=== PATIENT | male | born 1995 | race American Indian/Alaskan Native ===

== ENCOUNTER 2016-08-07 15:35 | Emergency (ER) | payer MEDICAID ==
[2016-08-07 16:25] LABS: Basophils % (Auto) 0.5 % (0.0-1.8); Eosinophils % (Auto) 0.2 % (0.0-4.3); Hematocrit 42.5 % (35.5-45.6); Hemoglobin 14.2 gm/dl (11.8-15.2); Mean Corpuscular HGB Conc 33 % (32-34); Mean Corpuscular Hemoglobin 29 pg (28-32); Mean Corpuscular Volume 88 fl (84-94); Platelet Count 227 K/mm3 (140-440); Red Blood Count 4.86 M/mm3 (3.65-5.03); Red Cell Distribution Width 14.1 % (13.2-15.2); White Blood Count 6.2 K/mm3 (4.5-11.0)
[2016-08-07 16:41] LABS: Anion Gap 15 mmol/L; BUN/Creatinine Ratio 10.83; Blood Urea Nitrogen 13 mg/dL (9-20); Calcium 9.4 mg/dL (8.4-10.2); Carbon Dioxide 27 mmol/L (22-30); Chloride 102.4 mmol/L (98-107); Glucose 97 mg/dL (75-100); Potassium 4.7 mmol/L (3.6-5.0); Sodium 140 mmol/L (137-145)
--- NOTE | 2016-08-07 17:54 | Emergency Department Report ---
Chief Complaint: Psych Stated Complaint: SUICIDAL Time Seen by Provider: 08/07/16 17:50 - HPI History of Present Illness: Patient brought to hospital by police department. He reported the patient was starting to cut himself with a knife at [facility]. Reports threatening to kill himself. Denies hallucination. Denies homicidal ideation. They reported that he had small cut to his left index finger. Patient denies any suicidal or homicidal ideation. He reports that he is bipolar, ADHD and other psychotic disorder. - ROS Review of Systems: All systems are negative unless stated in HPI above - Exam Vital Signs: Vital Signs 08/07/16 15:54 Temperature 98.4 F Pulse Rate 71 Respiratory 17 Rate Blood Pressure 125/81 O2 Sat by Pulse 98 Oximetry Physical Exam: General: This is a 21-year-old male well-nourished well-developed in no acute distress. PSYCH: Normal mood and behavior. negative suicide ideation negative homicide ideation and negative hallucination. MSE screening note: Focused history and physical exam performed. Due to findings the following was ordered: ED Medical Decision Making - Lab Data Result diagrams: 08/07/16 16:05 08/07/16 16:05 Lab Results 08/07/16 08/07/16 08/07/16 Range/Units 16:05 16:05 16:05 WBC 6.2 (4.5-11.0) K/mm3 RBC 4.86 (3.65-5.03) M/mm3 Hgb 14.2 (11.8-15.2) gm/dl Hct 42.5 (35.5-45.6) % MCV 88 (84-94) fl MCH 29 (28-32) pg MCHC 33 (32-34) % RDW 14.1 (13.2-15.2) % Plt Count 227 (140-440) K/mm3 Lymph % (Auto) 31.9 (13.4-35.0) % [place] % (Auto) 8.0 H (0.0-7.3) % Eos % (Auto) 0.2 (0.0-4.3) % Baso % (Auto) 0.5 (0.0-1.8) % Lymph # 2.0 (1.2-5.4) K/mm3 [place] # 0.5 (0.0-0.8) K/mm3 Eos # 0.0 (0.0-0.4) K/mm3 Baso # 0.0 (0.0-0.1) K/mm3 Seg Neutrophils % 59.4 (40.0-70.0) % Seg Neutrophils # 3.7 (1.8-7.7) K/mm3 Sodium 140 (137-145) mmol/L Potassium 4.7 (3.6-5.0) mmol/L Chloride 102.4 (98-107) mmol/L Carbon Dioxide 27 (22-30) mmol/L Anion Gap 15 mmol/L BUN 13 (9-20) mg/dL Creatinine 1.2 (0.8-1.5) mg/dL Estimated GFR > 60 ml/min BUN/Creatinine Ratio 10.83 % Glucose 97 (75-100) mg/dL Calcium 9.4 (8.4-10.2) mg/dL Plasma/Serum Alcohol < 0.01 (0-0.07) gm% - Medical Decision Making Medical decision making: Patient seen by provider in triage area. Appropriate protocol activated and patient to main ED to be seen by physician. ED Disposition for MSE Condition: Stable
[2016-08-07] MEDS ORDERED: GEODON IM ONE (21:22)
[2016-08-07] MEDS ORDERED: BENADRYL IM ONE (21:22)
[2016-08-07] MEDS ORDERED: BOOSTRIX IM ONE (21:22)
--- NOTE | 2016-08-07 21:34 | Emergency Department Report ---
ED Psych HPI - General Chief Complaint: Psych Stated Complaint: SUICIDAL Time Seen by Provider: 08/07/16 17:50 Source: patient Mode of arrival: Ambulatory Limitations: No Limitations - History of Present Illness Initial Comments: 21-year-old male with a past medical history impulse control problems, aggressive behavior, bipolar, and ADHD presents to the hospital complaints of suicidal threats. Apparently this episode occurred at [facility]. Patient states he has a girlfriend at [facility] and she got wrote up by her boss because she was talking to the patient. Patient felt bad about it and depressed. He stated he walked to the back of the [facility] and place a knife in his pocket and told the staff to call the police. When they did not call the police he pulled the knife out and made a superficial scratch to his left wrist and superficial laceration to his left thumb and index finger. Police were called and several came to scene and transferred the pt to the Ed for evaluation. Patient states tetanus status is unknown and likely not up-to-date. Patient denies any previous history of suicidal ideation or attempt. He has been compliant with his psychiatric medication but cannot recall the names or doses. Patient is insisting that he does not want to stay and he needs to be discharged and given an other chance. - Related Data Home Medications Medication Instructions Recorded Confirmed Last Taken Unobtainable [Unobtainable] 12/24/13 12/24/13 Unknown Allergies Allergy/AdvReac Type Severity Reaction Status Date / Time Penicillins Allergy Anaphylaxis Verified 08/07/16 15:50 tomato [Tomato] Allergy Swelling Verified 08/07/16 15:50 ED Review of Systems ROS: Stated complaint: SUICIDAL Other details as noted in HPI Comment: All other systems reviewed and negative Other: Constitutional: No fevers chills or weight loss Eyes: No eye pain visual changes or discharge ENT: No ear pain or throat pain Neck: Denies pain Respiratory: Denies cough wheezing shortness of breath Cardiovascular: Denies chest pain, palpitations, syncope GI: Denies abdominal pain, nausea, vomiting, diarrhea : Denies dysuria Musculoskeletal: Denies back pain, joint swelling Skin: as per hpi Neurologic: Denies headache, numbness, weakness Psychiatric: as per hpi ED Past Medical Hx - Past Medical History Hx Psychiatric Treatment: Yes (IMPULSIVE / AGGRESSIVE / BIPOLAR / ADHD) Additional medical history: Bipolar. ADHD - Surgical History Past Surgical History?: No - Social History Smoking Status: Never Smoker Substance Use Type: None - Medications Home Medications: Home Medications Medication Instructions Recorded Confirmed Last Taken Type Unobtainable [Unobtainable] 12/24/13 12/24/13 Unknown History ED Physical Exam - General Limitations: No Limitations - Other Other exam information: General: No limitations, patient is alert in no acute distress Head exam: Atraumatic, normocephalic Eyes exam: Normal appearance ENT: Moist mucous membrane, normal oropharynx Neck exam: Normal inspection, full range of motion Respiratory exam: Clear to auscultation bilateral, no wheezes, rales, crackles Cardiovascular: Normal rate and rhythm, normal heart sounds Abdomen: Soft, nondistended, and nontender, with normal bowel sounds, no rebound, or guarding Extremity: Full range of motion normal inspection no deformity Back: Normal Inspection, full range of motion, no tenderness Neurologic: Alert, oriented x3, cranial nerves intact, no motor or sensory deficit Psychiatric: normal affect Skin: superficial scratch to left volar wrist, .5 cm lac to pulp of thumb and 1.2 cm lac to pulp of left index finger ED Course Vital Signs 08/07/16 15:54 Temperature 98.4 F Pulse Rate 71 Respiratory 17 Rate Blood Pressure 125/81 O2 Sat by Pulse 98 Oximetry - Reevaluation(s) Reevaluation #1: 08/07/16 21:38 pt cooperative initially however, became agitated when informed he will need to stay for psych eval. He insisted he needed to go home tonight. Meds ordered to calm pt down ED Medical Decision Making - Lab Data Result diagrams: 08/07/16 16:05 08/07/16 16:05 Lab Results 08/07/16 08/07/16 08/07/16 Range/Units 16:05 16:05 16:05 WBC 6.2 (4.5-11.0) K/mm3 RBC 4.86 (3.65-5.03) M/mm3 Hgb 14.2 (11.8-15.2) gm/dl Hct 42.5 (35.5-45.6) % MCV 88 (84-94) fl MCH 29 (28-32) pg MCHC 33 (32-34) % RDW 14.1 (13.2-15.2) % Plt Count 227 (140-440) K/mm3 Lymph % (Auto) 31.9 (13.4-35.0) % [place] % (Auto) 8.0 H (0.0-7.3) % Eos % (Auto) 0.2 (0.0-4.3) % Baso % (Auto) 0.5 (0.0-1.8) % Lymph # 2.0 (1.2-5.4) K/mm3 [place] # 0.5 (0.0-0.8) K/mm3 Eos # 0.0 (0.0-0.4) K/mm3 Baso # 0.0 (0.0-0.1) K/mm3 Seg Neutrophils % 59.4 (40.0-70.0) % Seg Neutrophils # 3.7 (1.8-7.7) K/mm3 Sodium 140 (137-145) mmol/L Potassium 4.7 (3.6-5.0) mmol/L Chloride 102.4 (98-107) mmol/L Carbon Dioxide 27 (22-30) mmol/L Anion Gap 15 mmol/L BUN 13 (9-20) mg/dL Creatinine 1.2 (0.8-1.5) mg/dL Estimated GFR > 60 ml/min BUN/Creatinine Ratio 10.83 % Glucose 97 (75-100) mg/dL Calcium 9.4 (8.4-10.2) mg/dL Urine Color (Yellow) Urine Turbidity (Clear) Urine pH (5.0-7.0) Ur Specific [place] (1.003-1.030) Urine Protein (Negative) mg/dL Urine Glucose (UA) (Negative) mg/dL Urine Ketones (Negative) mg/dL Urine Blood (Negative) Urine Nitrite (Negative) Urine Bilirubin (Negative) Urine Urobilinogen (<2.0) mg/dL Ur Leukocyte Esterase (Negative) Urine WBC (Auto) (0.0-6.0) /HPF Urine RBC (Auto) (0.0-6.0) /HPF U Epithel Cells (Auto) (0-13.0) /HPF Urine Mucus /HPF Urine Opiates Screen Urine Methadone Screen Ur Barbiturates Screen Ur Phencyclidine Scrn Ur Amphetamines Screen U Benzodiazepines Scrn Urine Cocaine Screen U Marijuana (THC) Screen Drugs of Abuse Note Plasma/Serum Alcohol < 0.01 (0-0.07) gm% 08/07/16 08/07/16 Range/Units 22:08 22:08 WBC (4.5-11.0) K/mm3 RBC (3.65-5.03) M/mm3 Hgb (11.8-15.2) gm/dl Hct (35.5-45.6) % MCV (84-94) fl MCH (28-32) pg MCHC (32-34) % RDW (13.2-15.2) % Plt Count (140-440) K/mm3 Lymph % (Auto) (13.4-35.0) % [place] % (Auto) (0.0-7.3) % Eos % (Auto) (0.0-4.3) % Baso % (Auto) (0.0-1.8) % Lymph # (1.2-5.4) K/mm3 [place] # (0.0-0.8) K/mm3 Eos # (0.0-0.4) K/mm3 Baso # (0.0-0.1) K/mm3 Seg Neutrophils % (40.0-70.0) % Seg Neutrophils # (1.8-7.7) K/mm3 Sodium (137-145) mmol/L Potassium (3.6-5.0) mmol/L Chloride (98-107) mmol/L Carbon Dioxide (22-30) mmol/L Anion Gap mmol/L BUN (9-20) mg/dL Creatinine (0.8-1.5) mg/dL Estimated GFR ml/min BUN/Creatinine Ratio % Glucose (75-100) mg/dL Calcium (8.4-10.2) mg/dL Urine Color Yellow (Yellow) Urine Turbidity Clear (Clear) Urine pH 6.0 (5.0-7.0) Ur Specific [place] 1.026 (1.003-1.030) Urine Protein 30 mg/dl (Negative) mg/dL Urine Glucose (UA) Neg (Negative) mg/dL Urine Ketones Tr (Negative) mg/dL Urine Blood Neg (Negative) Urine Nitrite Neg (Negative) Urine Bilirubin Neg (Negative) Urine Urobilinogen 2.0 (<2.0) mg/dL Ur Leukocyte Esterase Neg (Negative) Urine WBC (Auto) < 1.0 (0.0-6.0) /HPF Urine RBC (Auto) 2.0 (0.0-6.0) /HPF U Epithel Cells (Auto) < 1.0 (0-13.0) /HPF Urine Mucus 1+ /HPF Urine Opiates Screen Presumptive negative Urine Methadone Screen Presumptive negative Ur Barbiturates Screen Presumptive positive Ur Phencyclidine Scrn Presumptive negative Ur Amphetamines Screen Presumptive negative U Benzodiazepines Scrn Presumptive negative Urine Cocaine Screen Presumptive negative U Marijuana (THC) Screen Presumptive negative Drugs of Abuse Note Disclamer Plasma/Serum Alcohol (0-0.07) gm% - Medical Decision Making 1013, ed transfer form signed. Patient requires inpatient treatment for his psychiatric stabilization - Differential Diagnosis impulsive behavior, depression, SI, Critical Care Time: No Critical care attestation.: If time is entered above; I have spent that time in minutes in the direct care of this critically ill patient, excluding procedure time. ED Disposition Clinical Impression: Suicidal ideation, Medical clearance for psychiatric admission, History of impulsive behavior, Hx of bipolar disorder Disposition: DC/TX PSY HOSP/PSY UNIT Is pt being admited?: No Does the pt Need Aspirin: No Condition: Stable Time of Disposition: 01:17 (awaiting acceptance)
[2016-08-07] MEDS ORDERED: TYLENOL PO PRN (21:56)
[2016-08-07] MEDS ORDERED: MILK OF MAGNESIA PO PRN (21:56)
[2016-08-07] MEDS ORDERED: ALUM-MAG HYDROX-SIMETH 200-200-20MG/5ML PO PRN (21:56)
[2016-08-07 22:20] LABS: Urine Drugs of Abuse Note Disclamer
[2016-08-07 22:29] LABS: Bilirubin,Urine NEG (Negative); Blood,Urine NEG (Negative); Ketones,Urine TR mg/dL (Negative); Leukocyte Esterase,Urine NEG (Negative); Mucus,Urine 1+ /HPF; Nitrite,Urine NEG (Negative); WBC,Urine < 1.0 /HPF (0.0-6.0)
--- NOTE | 2016-08-08 11:43 | Consultation ---
History of Present Illness - Reason for Consult Consult date: 08/08/16 Reason for consult: Mental Health Evaluation Requesting physician: EDGARDO NIETO - Chief Complaint Chief complaint: "I just cut my finger" - History of Present Psychiatric Illness 21-year-old AA male with a past medical history impulse control problems, aggressive behavior, bipolar, and ADHD presents to the hospital complaints of suicidal threats. Today patient is calm, cooperative with a tangential thought process. He stated he cut his finger in [facility] because his girlfriend got wrote up for talking to him. He could not tell me the girlfriend's name. He stated, "She know her name and who I am." Per the patient he wanted to cut his "artery" instead of his finger. He stated that he has SI's often. He stated that he use sharp objects to injure himself when he becomes impulsive. He stated , "I miss my woman." Again he could not tell me any information about this person. The patient resides near [facility] in [place], [place]. Patient was looking around during discussion, possibly responding to external stimuli. He denies SI/ HI's, AVH, poor appetite or sleep disturbance. He denies recreational drug use and alcohol consumption (etoh). He admit to taking psy medications for Bipolar and ADHD. He could not recall the last time he took his meds. Patient has superficial wounds to his left wrist, left thumb and index finger. Medications and Allergies Allergies Allergy/AdvReac Type Severity Reaction Status Date / Time Penicillins Allergy Anaphylaxis Verified 08/07/16 15:50 tomato [Tomato] Allergy Swelling Verified 08/07/16 15:50 Home Medications Medication Instructions Recorded Confirmed Last Taken Type Chlorpromazine HCl [chlorproMAZINE] 200 mg PO BID 08/08/16 08/08/16 Unknown History Divalproex Sodium [Divalproex 1,500 mg PO QHS 08/08/16 08/08/16 Unknown History Sodium ER] Finasteride [Proscar] 5 mg PO DAILY 08/08/16 08/08/16 Unknown History Hydroxyzine HCl [hydrOXYzine] 50 mg PO QHS 08/08/16 08/08/16 Unknown History Olanzapine [OLANZapine] 30 mg PO QHS 08/08/16 08/08/16 Unknown History carBAMazepine [TEGretol] 200 mg PO BID 08/08/16 08/08/16 Unknown History clonazePAM 0.5 mg PO BID 08/08/16 08/08/16 Unknown History Active Meds: Active Medications Acetaminophen (Tylenol) 650 mg PO Q4HR PRN PRN Reason: Pain MILD(1-3)/Fever >100.5/SOLIS Al Hydrox/Mg Hydrox/Simethicone (Alum-Mag Hydrox-Simeth 662-148-11re/5ml) 30 ml PO Q4HR PRN PRN Reason: Indigestion Magnesium Hydroxide (Milk Of Magnesia) 30 ml PO Q12HR PRN PRN Reason: Constipation Past psychiatric history - Past Medical History Past Medical History: No medical history Past Surgical History: No surgical history - past Psychiatric treatment and history Psych: Bipolar, Depression, Psychosis psychiatric treatment history: Multiple inpatient settings. Denies fam psy hx. - Social History Social history: other (Live at a [facility] in [place], [place]) Mental Status Exam - Vital signs Last Vital Signs Temp 98.7 F 08/08/16 04:19 Pulse 71 08/08/16 04:19 Resp 17 08/08/16 04:19 BP 120/74 08/08/16 04:19 Pulse Ox 99 08/08/16 04:19 - Exam Narrative exam: ROS (+) psychosis, (+) disorganized MSE: Appearance: calm, cooperative Behavior: poor eye contact Speech: regular rate and tone Mood: "I am not depressed" Affect: flat Thought Process: tangential Thought Content: denies SI/HI's and AVH's Motor Activity: lying in bad Cognition: A/Ox3 Insight: poor Judgment: poor Results Result Diagrams: 08/07/16 16:05 08/07/16 16:05 Abnormal lab results 08/07/16 Range/Units 16:05 [place] % (Auto) 8.0 H (0.0-7.3) % All other labs normal. Assessment and Plan Assessment and plan: Impression: Unspecified Mood DO. 21-year-old AA male with a past medical history impulse control problems, aggressive behavior, bipolar, and ADHD presents to the hospital complaints of suicidal threats. Today patient is calm, cooperative with a tangential thought process. He stated he cut his finger in [employer] because he girlfriend got wrote up for talking to him. He could not tell me the girlfriend's name. He stated, "She know her name and who I am." DD: R/O Bipolar Recommendation/Plan: Continue 1013 with pending transfer to [facility].
[2016-08-08 12:50] VITALS: BP 118/69
== END 2016-08-08 13:00 ==
LOC: ED 15:35
DX: R45.851 Suicidal ideations (principal); S61.012A Laceration without foreign body of left thumb without damage to nail, initial encounter; S61.211A Laceration without foreign body of left index finger without damage to nail, initial encounter; F63.9 Impulse disorder, unspecified; F31.9 Bipolar disorder, unspecified; F90.9 Attention-deficit hyperactivity disorder, unspecified type; Z88.0 Allergy status to penicillin; Z91.018 Allergy to other foods; X78.1XXA Intentional self-harm by knife, initial encounter; Y93.89 Activity, other specified; Y99.8 Other external cause status; Y92.89 Other specified places as the place of occurrence of the external cause
CPT/HCPCS: 36415; 80048; 80307; 81001; 85025; 90471; 90715; 96372; 99285; G0480; J1200; J3486; 80320

== ENCOUNTER 2020-08-03 15:13 | Emergency (ER) | payer SELFPAY ==
[2020-08-03 15:50] VITALS: BP 132/69
--- NOTE | 2020-08-03 17:46 | Emergency Department Report ---
Blank Doc - Documentation Documentation: 18 male that presents with general abdominal pain with nausea vomiting. 1- This initial assessment/diagnostic orders/clinical plan/ treatment(s) is/are subject to change based on pt's health status, clinical progression and re- assessment by fellow clinical providers in the ED. Further treatment and workup at subsequent clinical provers discretion. Patient/guardians urged not to elope from ED as their condition may be serious if not clinically assessed and managed. 2-labs 3-UA
[2020-08-03 18:15] LABS: Basophils % (Auto) 0.4 % (0.0-1.8); Eosinophils # (Auto) 0.1 K/mm3 (0.0-0.4); Eosinophils % (Auto) 0.9 % (0.0-4.3); Hematocrit 41.7 % (35.5-45.6); Hemoglobin 14.2 gm/dl (11.8-15.2); Mean Corpuscular HGB Conc 34 % (32-34); Mean Corpuscular Volume 89 fl (84-94); Monocytes # (Auto) 0.7 K/mm3 (0.0-0.8); Monocytes % (Auto) 8.2 % (0.0-7.3); Platelet Count 231 K/mm3 (140-440); Red Blood Count 4.67 M/mm3 (3.65-5.03); Red Cell Distribution Width 14.6 % (13.2-15.2)
[2020-08-03 18:37] LABS: Alanine Aminotransferase 13 units/L (7-56); Albumin 4.6 g/dL (3.9-5); BUN/Creatinine Ratio 16; Blood Urea Nitrogen 16 mg/dL (9-20); Calcium 9.5 mg/dL (8.4-10.2); Hemolysis Index 8
[2020-08-03] MEDS ORDERED: ONDANSETRON 4 MG ODT TAB PO ONE (19:53)
[2020-08-03] MEDS ORDERED: FAMOTIDINE 20 MG TAB PO ONE (19:54)
[2020-08-03] MEDS ORDERED: SODIUM CHLORIDE 0.9% 1000 ML 1,000 ML IV ONE (20:05)
[2020-08-03] MEDS ORDERED: ONDANSETRON 4 MG/2 ML INJ IV ONE (20:05)
[2020-08-03] MEDS ORDERED: FAMOTIDINE 20 MG/2 ML INJ IV ONE (20:05)
--- NOTE | 2020-08-04 00:33 | Emergency Department Report ---
ED N/V/D HPI - General Chief complaint: Nausea/Vomiting/Diarrhea Stated complaint: VOMITTING Time Seen by Provider: 08/03/20 17:41 Source: patient Mode of arrival: Ambulatory Limitations: No Limitations - History of Present Illness Initial comments: Patient is an 25-year-old -Russian male with a history of bipolar disorder, ADHD, aggressive and impulsive behavior who presents to the ED with acute onset persistent intractable nausea and vomiting for the last 3 days. Patient states that he has not been able to keep anything down because of wo rsening nausea and vomiting. Patient also complains of mild diffuse abdominal pain which gets worse with nausea and vomiting episodes. Patient states that he just got [facility] from [facility] about 4 days ago and subsequent developed the symptoms. Patient denies fever, chills, dizziness, syncope, diarrhea, chest pain, shortness of breath, dysuria, urinary frequency and urgency, testicular pain, hematuria, low back pain, headache, cough or sore throat. MD complaint: nausea, vomiting, abdominal pain -: Sudden, hour(s) (12) Description of Vomiting: food contents, watery, bilious Associated Abdominal Pain: Yes (DIFFUSE) Location: diffuse Radiation: none Severity: severe Pain Scale: 7 Quality: cramping, aching Consistency: intermittent Worsens with: eating, vomiting Context: possible food poisoning Associated Symptoms: denies other symptoms, malaise, nausea/vomiting. denies: myalgias, chest pain, cough, diaphoresis, fever/chills, headaches, loss of appetite, shortness of breath, syncope, weakness - Related Data Home Medications Medication Instructions Recorded Confirmed Last Taken Chlorpromazine HCl [chlorproMAZINE] 200 mg PO BID 08/08/16 08/08/16 Unknown Divalproex Sodium [Divalproex 1,500 mg PO QHS 08/08/16 08/08/16 Unknown Sodium ER] Finasteride [Proscar] 5 mg PO DAILY 08/08/16 08/08/16 Unknown Hydroxyzine HCl [hydrOXYzine] 50 mg PO QHS 08/08/16 08/08/16 Unknown OLANZapine 30 mg PO QHS 08/08/16 08/08/16 Unknown carBAMazepine [TEGretol] 200 mg PO BID 08/08/16 08/08/16 Unknown clonazePAM 0.5 mg PO BID 08/08/16 08/08/16 Unknown Previous Rx's Medication Instructions Recorded Last Taken Type Dicyclomine [Bentyl] 20 mg PO Q6H PRN #24 tablet 08/04/20 Unknown Rx Famotidine [Pepcid] 20 mg PO BID #30 tablet 08/04/20 Unknown Rx Ondansetron [Zofran Odt] 4 mg PO Q8HR PRN #20 tab.rapdis 08/04/20 Unknown Rx Allergies Allergy/AdvReac Type Severity Reaction Status Date / Time Penicillins Allergy Anaphylaxis Verified 08/03/20 15:45 ED Review of Systems ROS: Stated complaint: VOMITTING Other details as noted in HPI Constitutional: malaise, weakness. denies: chills, fever Eyes: denies: eye pain, eye discharge, vision change ENT: denies: ear pain, throat pain Respiratory: denies: cough, shortness of breath, wheezing Cardiovascular: denies: chest pain, palpitations Endocrine: no symptoms reported Gastrointestinal: abdominal pain, nausea, vomiting. denies: diarrhea, constipation, hematemesis Genitourinary: denies: urgency, dysuria Musculoskeletal: denies: back pain, joint swelling, arthralgia Skin: denies: rash, lesions Neurological: denies: headache, weakness, paresthesias Psychiatric: denies: anxiety, depression Hematological/Lymphatic: denies: easy bleeding, easy bruising ED Past Medical Hx - Past Medical History Hx Psychiatric Treatment: Yes (IMPULSIVE / AGGRESSIVE / BIPOLAR / ADHD) Additional medical history: Bipolar. ADHD - Surgical History Past Surgical History?: No - Social History Smoking Status: Never Smoker Substance Use Type: None - Medications Home Medications: Home Medications Medication Instructions Recorded Confirmed Last Taken Type Chlorpromazine HCl [chlorproMAZINE] 200 mg PO BID 08/08/16 08/08/16 Unknown History Divalproex Sodium [Divalproex 1,500 mg PO QHS 08/08/16 08/08/16 Unknown History Sodium ER] Finasteride [Proscar] 5 mg PO DAILY 08/08/16 08/08/16 Unknown History Hydroxyzine HCl [hydrOXYzine] 50 mg PO QHS 08/08/16 08/08/16 Unknown History OLANZapine 30 mg PO QHS 08/08/16 08/08/16 Unknown History carBAMazepine [TEGretol] 200 mg PO BID 08/08/16 08/08/16 Unknown History clonazePAM 0.5 mg PO BID 08/08/16 08/08/16 Unknown History Dicyclomine [Bentyl] 20 mg PO Q6H PRN #24 tablet 08/04/20 Unknown Rx Famotidine [Pepcid] 20 mg PO BID #30 tablet 08/04/20 Unknown Rx Ondansetron [Zofran Odt] 4 mg PO Q8HR PRN #20 tab.rapdis 08/04/20 Unknown Rx ED Physical Exam - General Limitations: No Limitations General appearance: alert, in no apparent distress - Head Head exam: Present: atraumatic, normocephalic, normal inspection - Eye Eye exam: Present: normal appearance, PERRL, EOMI Pupils: Present: normal accommodation - ENT ENT exam: Present: normal exam, normal orophraynx, mucous membranes moist, TM's normal bilaterally, normal external ear exam - Neck Neck exam: Present: normal inspection, full ROM - Respiratory Respiratory exam: Present: normal lung sounds bilaterally. Absent: respiratory distress, wheezes, rales, rhonchi, chest wall tenderness, accessory muscle use, decreased breath sounds - Cardiovascular Cardiovascular Exam: Present: normal rhythm, bradycardia, normal heart sounds. Absent: systolic murmur, diastolic murmur, rubs, gallop - GI/Abdominal GI/Abdominal exam: Present: soft, normal bowel sounds. Absent: tenderness, guarding, rebound, hyperactive bowel sounds, hypoactive bowel sounds, organomegaly - Extremities Exam Extremities exam: Present: normal inspection, full ROM, normal capillary refill - Back Exam Back exam: Present: normal inspection, full ROM. Absent: tenderness, CVA tenderness (R), CVA tenderness (L), muscle spasm, paraspinal tenderness, vertebral tenderness - Neurological Exam Neurological exam: Present: alert, oriented X3, CN II-XII intact, normal gait, reflexes normal - Psychiatric Psychiatric exam: Present: normal affect, normal mood - Skin Skin exam: Present: warm, dry, intact, normal color. Absent: rash ED Course Vital Signs 08/03/20 15:49 Temperature 98.2 F Pulse Rate 53 L Respiratory 18 Rate Blood Pressure 132/69 O2 Sat by Pulse 100 Oximetry ED Medical Decision Making - Lab Data Result diagrams: 08/03/20 17:56 08/03/20 17:56 - Medical Decision Making This is an 25-year-old -Russian male with a history of bipolar disorder, ADHD, aggressive and impulsive behavior who presents to the ED with acute onset persistent intractable nausea and vomiting for the last 3 days. Patient states that he has not been able to keep anything down because of worsening nausea and vomiting. Patient also complains of mild diffuse abdominal pain which gets worse with nausea and vomiting episodes. Patient states that he just got rele[facility] sed from [facility] about 4 days ago and subsequent developed the symptoms. In the ED, patient is alert and oriented x3 and is not in any distress. Patient was treated in the ED for nausea and vomiting, also given antacids and pain medication. Lab test results were reviewed and are all nonactionable. On reevaluation, patient's nausea and vomiting is well controlled medication. Patient passed oral fluid challenge in the ED. Based on the patient's history and physical exam findings as well as lab test results, patient symptoms are likely viral in etiology due to food poisoning. Patient himself admitted that he is homeless and therefore has no choice on what he eats. Patient was therefore discharged home on antiemetics, antacids and antispasmodic medications. Patient was advised to maintain a clear liquid diet for 12 to 24 hours, take medication as needed and follow-up with his primary care physician in 5 to 7 days for reevaluation. Patient was advised return to the ED immediately if symptoms get worse. - Differential Diagnosis Gastroenteritis; viral syndrome; dehydration; UTI; Critical care attestation.: If time is entered above; I have spent that time in minutes in the direct care of this critically ill patient, excluding procedure time. ED Disposition Clinical Impression: Viral gastroenteritis, Nausea and vomiting in adult patient, Abdominal pain in male Disposition: DC-01 TO HOME OR SELFCARE Is pt being admited?: No Does the pt Need Aspirin: No Condition: Stable Instructions: Viral Gastroenteritis, Adult, [id number], Nausea and Vomiting, Adult, [id number], Abdominal Pain, Adult, [id number] Additional Instructions: All lab test results were reviewed and are all nonactionable. Your symptoms are likely due to a viral gastroenteritis from food poisoning. Therefore maintain a clear liquid diet for 12 to 24 hours, drink plenty of fluids, take medication as needed for nausea and vomiting and the antacid and follow-up with your primary care physician in 3 to 5 days for reevaluation. Return to the ED immediately if symptoms get worse. Prescriptions: Dicyclomine [Bentyl] 20 mg PO Q6H PRN #24 tablet PRN Reason: Abdominal pain Famotidine [Pepcid] 20 mg PO BID #30 tablet Ondansetron [Zofran Odt] 4 mg PO Q8HR PRN #20 tab.rapdis PRN Reason: Nausea Referrals: [facility] [Provider Group] - 3-5 Days Time of Disposition: 00:33 Print Language: ESTONIAN
[2020-08-04 02:13] LABS: Bilirubin,Urine NEG (Negative); Blood,Urine SM (Negative); Color,Urine Yellow (Yellow); Mucus,Urine 1+ /HPF; WBC,Urine < 1.0 /HPF (0.0-6.0)
== END 2020-08-04 03:15 | disposition home or self-care (01) ==
LOC: ED 15:13
DX: A08.4 Viral intestinal infection, unspecified (principal); F31.9 Bipolar disorder, unspecified; Z79.899 Other long term (current) drug therapy; Z88.0 Allergy status to penicillin
CPT/HCPCS: 36415; 80053; 81001; 83690; 85025; 96361; 96374; 96375; 99284; J2405; J7030

== ENCOUNTER 2020-10-06 21:11 | Emergency (ER) | payer MEDICAID ==
[2020-10-07 00:52] LABS: Basophils % (Auto) 0.6 % (0.0-1.8); Eosinophils # (Auto) 0.1 K/mm3 (0.0-0.4); Eosinophils % (Auto) 1.3 % (0.0-4.3); Hematocrit 40.8 % (35.5-45.6); Hemoglobin 14.2 gm/dl (11.8-15.2); Lymphocytes # (Auto) 2.8 K/mm3 (1.2-5.4); Lymphocytes % (Auto) 38.5 % (13.4-35.0); Mean Corpuscular HGB Conc 35 % (32-34); Mean Corpuscular Volume 87 fl (84-94); Monocytes # (Auto) 0.5 K/mm3 (0.0-0.8); Monocytes % (Auto) 6.7 % (0.0-7.3); Platelet Count 227 K/mm3 (140-440); Red Blood Count 4.69 M/mm3 (3.65-5.03); Red Cell Distribution Width 13.4 % (13.2-15.2)
[2020-10-07] MEDS ORDERED: SODIUM CHLORIDE 0.9% 1000 ML 1,000 ML IV ONE (00:56)
[2020-10-07] MEDS ORDERED: FAMOTIDINE 20 MG/2 ML INJ IV ONE (00:56)
[2020-10-07] MEDS ORDERED: DICYCLOMINE 20 MG/2 ML INJ IM ONE (00:56)
[2020-10-07] MEDS ORDERED: ONDANSETRON 4 MG/2 ML INJ IV ONE ×2 (00:56→03:18)
[2020-10-07 01:11] LABS: Alanine Aminotransferase 15 units/L (7-56); Albumin 4.6 g/dL (3.9-5); BUN/Creatinine Ratio 20; Blood Urea Nitrogen 22 mg/dL (9-20); Calcium 9.6 mg/dL (8.4-10.2); Hemolysis Index 7
--- NOTE | 2020-10-07 03:10 | Ultrasound Report ---
ULTRASOUND ABDOMEN, LIMITED (RIGHT UPPER QUADRANT) INDICATION: Epigastric pain. COMPARISON: None available. FINDINGS: Pancreas: Visualized portion shows no significant abnormality. Liver: Normal. Gallbladder: Mildly thickened gallbladder wall with cholelithiasis. Bile ducts: Normal. Common Bile Duct measures 2 mm. Free fluid: None. Additional Findings: None. IMPRESSION: Gallbladder wall thickening with cholelithiasis which could be seen with early cholecystitis Signer Name: Adriel Morrison MD Signed: 10/07/2020 3:05 AM Workstation Name: [id number]
[2020-10-07] MEDS ORDERED: MORPHINE 4 MG/1 ML INJ IV ONE (03:17)
--- NOTE | 2020-10-07 03:23 | Emergency Department Report ---
ED Abdominal Pain HPI - General Chief Complaint: Abdominal Pain Stated Complaint: VOMITING Source: patient Mode of arrival: Ambulatory Limitations: No Limitations - History of Present Illness Initial Comments: Patient is a 25-year-old -[place] male with no past medical history presents to the ED with complaint of acute onset persistent epigastric pain that radiates to the right upper quadrant area and periumbilical area with intermittent nausea and vomiting for the last 1 month. Patient states that in the last 3 days, epigastric pain and nausea and vomiting have worsened such that he has not been able to keep anything down including fluids and food. Patient states that in the last 12 hours he has been generally weak, has experienced significant lack of appetite and fatigue with worsening pain with each episode of nausea and vomiting. Patient states that no one else at home is had similar symptoms. Patient denies dizziness, syncope, chest pain, shortness of breath, hematemesis, hematochezia, diarrhea, sore throat, headache, dysuria, urinary frequency and urgency and hematuria. MD Complaint: abdominal pain (epigastric and RUQ pain), other (Nausea and vomiting) -: Gradual, month(s) (1) Location: periumbilical, RUQ, epigastric Radiation: RUQ, epigastric Migration to: no migration Severity: severe Severity scale (0 -10): 8 Quality: cramping, aching, sharp Consistency: constant Improves With: nothing Worsens With: eating, vomiting Associated Symptoms: denies other symptoms, nausea, vomiting, anorexia. denies: diarrhea, fever, chills, constipation, dysuria, hematemesis, hematochezia, melena, hematuria, syncope, other - Related Data Home Medications Medication Instructions Recorded Confirmed Last Taken Chlorpromazine HCl [chlorproMAZINE] 200 mg PO BID 08/08/16 08/08/16 Unknown Divalproex Sodium [Divalproex 1,500 mg PO QHS 08/08/16 08/08/16 Unknown Sodium ER] Finasteride [Proscar] 5 mg PO DAILY 08/08/16 08/08/16 Unknown Hydroxyzine HCl [hydrOXYzine] 50 mg PO QHS 08/08/16 08/08/16 Unknown OLANZapine 30 mg PO QHS 08/08/16 08/08/16 Unknown carBAMazepine [TEGretol] 200 mg PO BID 08/08/16 08/08/16 Unknown clonazePAM 0.5 mg PO BID 08/08/16 08/08/16 Unknown Previous Rx's Medication Instructions Recorded Last Taken Type Dicyclomine [Bentyl] 20 mg PO Q6H PRN #24 tablet 08/04/20 Unknown Rx Ciprofloxacin HCl 500 mg PO Q12H #20 tablet 10/07/20 Unknown Rx Dicyclomine [Bentyl] 20 mg PO Q6H PRN #30 tablet 10/07/20 Unknown Rx Famotidine [Pepcid] 20 mg PO BID #30 tablet 10/07/20 Unknown Rx Ondansetron [Zofran ODT TAB] 4 mg PO Q8HR PRN #20 tab.rapdis 10/07/20 Unknown Rx metroNIDAZOLE [Flagyl] 500 mg PO Q8HR #30 tablet 10/07/20 Unknown Rx Allergies Allergy/AdvReac Type Severity Reaction Status Date / Time Penicillins Allergy Anaphylaxis Verified 08/03/20 15:45 ED Review of Systems ROS: Stated complaint: VOMITING Other details as noted in HPI Constitutional: malaise. denies: chills, fever Eyes: denies: eye pain, eye discharge, vision change ENT: denies: ear pain, throat pain Respiratory: denies: cough, shortness of breath, wheezing Cardiovascular: denies: chest pain, palpitations Endocrine: no symptoms reported Gastrointestinal: abdominal pain (epigastric, RUQ and periumbilical area), nausea, vomiting. denies: diarrhea, constipation, hematochezia Genitourinary: denies: urgency, dysuria Musculoskeletal: denies: back pain, joint swelling, arthralgia Skin: denies: rash, lesions Neurological: denies: headache, weakness, paresthesias Psychiatric: denies: anxiety, depression Hematological/Lymphatic: denies: easy bleeding, easy bruising ED Past Medical Hx - Past Medical History Previous Medical History?: Yes Hx Psychiatric Treatment: Yes (IMPULSIVE / AGGRESSIVE / BIPOLAR / ADHD) Additional medical history: Bipolar. ADHD - Surgical History Past Surgical History?: No - Social History Smoking Status: Never Smoker Substance Use Type: None - Medications Home Medications: Home Medications Medication Instructions Recorded Confirmed Last Taken Type Chlorpromazine HCl [chlorproMAZINE] 200 mg PO BID 08/08/16 08/08/16 Unknown History Divalproex Sodium [Divalproex 1,500 mg PO QHS 08/08/16 08/08/16 Unknown History Sodium ER] Finasteride [Proscar] 5 mg PO DAILY 08/08/16 08/08/16 Unknown History Hydroxyzine HCl [hydrOXYzine] 50 mg PO QHS 08/08/16 08/08/16 Unknown History OLANZapine 30 mg PO QHS 08/08/16 08/08/16 Unknown History carBAMazepine [TEGretol] 200 mg PO BID 08/08/16 08/08/16 Unknown History clonazePAM 0.5 mg PO BID 08/08/16 08/08/16 Unknown History Dicyclomine [Bentyl] 20 mg PO Q6H PRN #24 tablet 08/04/20 Unknown Rx Ciprofloxacin HCl 500 mg PO Q12H #20 tablet 10/07/20 Unknown Rx Dicyclomine [Bentyl] 20 mg PO Q6H PRN #30 tablet 10/07/20 Unknown Rx Famotidine [Pepcid] 20 mg PO BID #30 tablet 10/07/20 Unknown Rx Ondansetron [Zofran ODT TAB] 4 mg PO Q8HR PRN #20 tab.rapdis 10/07/20 Unknown Rx metroNIDAZOLE [Flagyl] 500 mg PO Q8HR #30 tablet 10/07/20 Unknown Rx ED Physical Exam - General Limitations: No Limitations General appearance: alert, in no apparent distress - Head Head exam: Present: atraumatic, normocephalic, normal inspection - Eye Eye exam: Present: normal appearance, PERRL, EOMI Pupils: Present: normal accommodation - ENT ENT exam: Present: normal exam, normal orophraynx, mucous membranes moist, TM's normal bilaterally, normal external ear exam - Neck Neck exam: Present: normal inspection, full ROM - Respiratory Respiratory exam: Present: normal lung sounds bilaterally. Absent: respiratory distress, wheezes, rales, rhonchi, chest wall tenderness, accessory muscle use, decreased breath sounds - Cardiovascular Cardiovascular Exam: Present: normal rhythm, bradycardia, normal heart sounds. Absent: systolic murmur, diastolic murmur, rubs, gallop - GI/Abdominal GI/Abdominal exam: Present: soft, tenderness (Palpable epigastric and right upper quadrant tenderness with positive Pisano sign), guarding, rebound, normal bowel sounds. Absent: distended, hyperactive bowel sounds, hypoactive bowel sounds, organomegaly - Extremities Exam Extremities exam: Present: normal inspection, full ROM, normal capillary refill - Back Exam Back exam: Present: normal inspection, full ROM. Absent: tenderness, CVA tenderness (R), CVA tenderness (L), muscle spasm, paraspinal tenderness, vertebral tenderness - Neurological Exam Neurological exam: Present: alert, oriented X3, CN II-XII intact, normal gait, reflexes normal - Psychiatric Psychiatric exam: Present: normal affect, normal mood, anxious - Skin Skin exam: Present: warm, dry, intact, normal color. Absent: rash ED Course Vital Signs 10/06/20 23:47 Temperature 98.6 F Pulse Rate 58 L Respiratory 18 Rate Blood Pressure 113/66 O2 Sat by Pulse 98 Oximetry - Reevaluation(s) Reevaluation #1: 10/07/20 04:34 I discussed the patient's case with the ED attending physician Dr. Cuong Albert who advised that the patient case be discussed with the general surgeon on-call Dr. Matthews for further direction. I therefore paged and discussed the patient's case with the general surgeon on- call Dr. Matthews who advised that the patient may be discharged home on pain medications and antibiotics and have the patient follow-up outpatient with him at this office in the next 48 hours for reevaluation. ED Medical Decision Making - Lab Data Result diagrams: 10/07/20 00:03 10/07/20 00:03 - Radiology Data Radiology results: report reviewed, image reviewed [address] [address] Ultrasound Report Signed Patient: CATHERINE PARDO MR#: [id number] : 1995 Acct:[id number] Age/Sex: 25 / M ADM Date: 10/06/20 Loc: ED Attending Dr: Ordering Physician: JUANPABLO LOZANO Date of Service: 10/07/20 Procedure(s): US abdomen limited Accession Number(s): [id number] cc: JUANPABLO LOZANO ULTRASOUND ABDOMEN, LIMITED (RIGHT UPPER QUADRANT) INDICATION: Epigastric pain. COMPARISON: None available. FINDINGS: Pancreas: Visualized portion shows no significant abnormality. Liver: Normal. Gallbladder: Mildly thickened gallbladder wall with cholelithiasis. Bile ducts: Normal. Common Bile Duct measures 2 mm. Free fluid: None. Additional Findings: None. IMPRESSION: Gallbladder wall thickening with cholelithiasis which could be seen with early cholecystitis Signer Name: Adriel Morrison MD Signed: 10/07/2020 3:05 AM Workstation Name: [id number] Transcribed By: BC Dictated By: Adriel Morrison MD Electronically Authenticated By: Adriel Morrison MD Signed Date/Time: 10/07/20304 DD/ 3 TD/TT: [facility] [address] [place] [address] Cat Scan Report Signed Patient: CATHERINE PARDO MR#: [id number] : 1995 Acct:[id number] Age/Sex: 25 / M ADM Date: 10/06/20 Loc: ED Attending Dr: Ordering Physician: JUANPABLO LOZANO Date of Service: 10/07/20 Procedure(s): CT abdomen pelvis w con Accession Number(s): [id number] cc: JUANPABLO LOZANO CT ABDOMEN AND PELVIS WITH IV CONTRAST INDICATION: RUQ and epigastric pain. COMPARISON: None available. TECHNIQUE: Axial CT images were obtained through the abdomen and pelvis after 100 mL IV co ntrast. All CT scans at this location are performed using CT dose reduction for ALARA by means of au tomated exposure control. FINDINGS -- ABDOMEN: Lung Bases: No acute abnormality. Liver: Slight increased periportal edema. Gallbladder: Partially contracted. Bile Ducts: Normal. Pancreas: Normal. Spleen: 2 cm hypodense lesion, nonspecific. Adrenals: Normal. Right Kidney and Proximal Ureter: Normal. Left Kidney and Proximal Ureter: Normal. Stomach and Bowel: Normal. Lymph Nodes: No significant adenopathy. Aorta: No significant abnormality. IVC: Normal. Additional Findings: None. FINDINGS -- PELVIS: Urinary Bladder and Distal Ureters: Normal. Reproductive Organs: No acute abnormality. Appendix: Only partially visualized but grossly unremarkable. Bowel: No acute abnormality. Free Fluid: None. Lymph Nodes: No significant adenopathy. Additional Findings: None. Skeletal System: No acute abnormality. IMPRESSION: Aside from slight increased periportal intrahepatic edema (nonspecific pattern) no acute process in the abdomen or pelvis. Large stool burden identified throughout the colon Signer Name: Adriel Morrison MD Signed: 10/07/2020 4:00 AM Workstation Name: [id number] Transcribed By: BC Dictated By: Adriel Morrison MD Electronically Authenticated By: Adriel Morrison MD Signed Date/Time: 10/07/20399 DD/ 7 TD/TT: - Medical Decision Making This is a 25-year-old -[place] male with past medical history of bipolar disorder and ADHD who presents to the ED with complaint of acute onset persistent epigastric pain that radiates to the right upper quadrant area and periumbilical area with intermittent nausea and vomiting for the last 1 month. Patient states that in the last 3 days, epigastric pain and nausea and vomiting have worsened such that he has not been able to keep anything down including fluids and food. Patient states that in the last 12 hours he has been generally weak, has experienced significant lack of appetite and fatigue with worsening pain with each episode of nausea and vomiting. Patient states that no one else at home is had similar symptoms. In the ED, patient is alert and oriented x3 and is not in distress with normal vital signs. Patient was treated for nausea and vomiting and pain and also given antacids and normal saline 1 L IV bolus x1. The gallbladder ultrasound showed gallbladder wall thickening with cholelithiasis which could be seen with early cholecystitis. The abdomen pelvis CT scan with contrast showed no acute abnormalities. On reevaluation, patient's pain is well controlled medications. Nausea and vomiting is well controlled as well. Lab test results were reviewed and are all nonactionable. Patient case was discussed with the ED attending physician Dr. Cuong Albert who advised that the general surgeon be contacted for further plan of care. I therefore paged and discussed the patient's case with the general surgeon on-call Dr. Alfredo Gomez who advised that given the fact that the patient's pain is well controlled, and that his lab test results are unremarkable, patient may be discharged from the ED after receiving antibiotics, and be advised to follow-up with his office in the next 48 hours for further evaluation. Patient was therefore treated in the ED with Levaquin 500 mg IV x1 and Flagyl 500 mg x 1. Patient was therefore discharged home on antibiotic, antacids, antiemetics and pain medications, and was advised to follow-up with the general surgeon Dr. Matthews for further evaluation in 24 to 48 hours. Patient was advised to contact Dr. Matthews's office first thing in the morning on Thursday October 08, 2020 to schedule a follow-up appointment. Patient was otherwise advised return to the ED immediately if symptoms get worse. - Differential Diagnosis Cholelithiasis; cholecystitis; GERD; gastritis; gastroenteritis; pancreatit Critical care attestation.: If time is entered above; I have spent that time in minutes in the direct care of this critically ill patient, excluding procedure time. ED Disposition Clinical Impression: Abdominal pain in male, Intractable nausea and vomiting Cholelithiasis and cholecystitis without obstruction Qualifiers: Cholelithiasis location: gallbladder Cholecystitis acuity: acute Qualified Code(s): K80.00 - Calculus of gallbladder with acute cholecystitis without obstruction GERD (gastroesophageal reflux disease) Qualifiers: Esophagitis presence: esophagitis presence not specified Qualified Code(s): K21.9 - Gastro-esophageal reflux disease without esophagitis Disposition: - TO HOME OR SELFCARE Is pt being admited?: No Does the pt Need Aspirin: No Condition: Stable Instructions: Abdominal Pain, Adult, [id number], Cholelithiasis, [id number], Gastroesophageal Reflux Disease, Adult, [id number], Nausea and Vomiting, Adult, [id number], Cholecystitis, [id number] Additional Instructions: All lab test results were reviewed and are all nonactionable. Gallbladder ultrasound showed gallbladder wall thickening with cholelithiasis which could be seen with early cholecystitis. The abdomen pelvis CT scan with contrast showed no acute abnormalities. Therefore maintain a clear liquid diet for 12 to 24 hours, take medications with food, drink plenty of fluids and follow-up with a general surgeon Dr. Alfredo Gomez as advised in 24 to 48 hours for reevaluati on. Return to the ED immediately if symptoms get worse. Prescriptions: Dicyclomine [Bentyl] 20 mg PO Q6H PRN #30 tablet PRN Reason: Abdominal pain Ciprofloxacin HCl 500 mg PO Q12H #20 tablet metroNIDAZOLE [Flagyl] 500 mg PO Q8HR #30 tablet Famotidine [Pepcid] 20 mg PO BID #30 tablet Ondansetron [Zofran ODT TAB] 4 mg PO Q8HR PRN #20 tab.rapdis PRN Reason: Nausea Referrals: MARK MATTHEWS MD [Staff Physician] - 2-3 Days Forms: Work/School Release Form(ED) Time of Disposition: 04:37 Print Language: POLISH
[2020-10-07] MEDS ORDERED: metroNIDAZOLE/NS 500 MG/100 ML 500 MG/100 ML BAG IV ONE (03:26)
--- NOTE | 2020-10-07 04:05 | Cat Scan Report ---
CT ABDOMEN AND PELVIS WITH IV CONTRAST INDICATION: RUQ and epigastric pain. COMPARISON: None available. TECHNIQUE: Axial CT images were obtained through the abdomen and pelvis after 100 mL IV contrast. All CT scans a t this location are performed using CT dose reduction for ALARA by means of automated exposure contro l. FINDINGS -- ABDOMEN: Lung Bases: No acute abnormality. Liver: Slight increased periportal edema. Gallbladder: Partially contracted. Bile Ducts: Normal. Pancreas: Normal. Spleen: 2 cm hypodense lesion, nonspecific. Adrenals: Normal. Right Kidney and Proximal Ureter: Normal. Left Kidney and Proximal Ureter: Normal. Stomach and Bowel: Normal. Lymph Nodes: No significant adenopathy. Aorta: No significant abnormality. IVC: Normal. Additional Findings: None. FINDINGS -- PELVIS: Urinary Bladder and Distal Ureters: Normal. Reproductive Organs: No acute abnormality. Appendix: Only partially visualized but grossly unremarkable. Bowel: No acute abnormality. Free Fluid: None. Lymph Nodes: No significant adenopathy. Additional Findings: None. Skeletal System: No acute abnormality. IMPRESSION: Aside from slight increased periportal intrahepatic edema (nonspecific pattern) no acute process in t he abdomen or pelvis. Large stool burden identified throughout the colon Signer Name: Adriel Morrison MD Signed: 10/07/2020 4:00 AM Workstation Name: [id number]
[2020-10-07] MEDS ORDERED: levoFLOXacin 500 MG TAB PO ONE (04:49)
[2020-10-07 05:45] VITALS: BP 105/69
== END 2020-10-07 05:22 | disposition home or self-care (01) ==
LOC: ED 21:11
DX: K80.10 Calculus of gallbladder with chronic cholecystitis without obstruction (principal); K21.9 Gastro-esophageal reflux disease without esophagitis; R10.13 Epigastric pain; R11.2 Nausea with vomiting, unspecified; F31.9 Bipolar disorder, unspecified; Z79.899 Other long term (current) drug therapy; Z88.0 Allergy status to penicillin
CPT/HCPCS: 36415; 74177; 76705; 80053; 82140; 83690; 85025; 87040; 96365; 96372; 96375; 99284; J0500; J1956; J2270; J2405; J7030; Q9967